=== PATIENT | female | born 1980 | race Caucasian/White ===

== ENCOUNTER 2021-11-27 09:04 | Outpatient (CLI) | payer BC, SELFPAY ==
--- NOTE | 2021-11-27 09:15 | CRLHL7_ITS ---
For Patients: As a result of the Century Cures Act, medical imaging exams and procedure reports are released immediately into your electronic medical record. You may view this report before your referring provider. If you have questions, please contact your health care provider. INDICATION: Breakthrough bleeding on control TECHNIQUE: Ultrasound pelvis transabdominal and transvaginal for better assessment or to better visualize the endometrium. Real time sonographic images with Spectral and color Doppler imaging of the ovaries were obtained. COMPARISON: None FINDINGS: Uterus: 7.8 centimeter x 3.6 centimeter x 4.1 centimeter. Normal echotexture of the myometrium. No masses. Endometrium: Transvaginal imaging was performed to better evaluate the endometrium. 8 millimeters in thickness. No sign of endometrial mass or fluid. Right ovary: 3.3 centimeter x 2.0 centimeter x 2.3 centimeter. No ovarian or adnexal masses. 0.8 centimeter dominant follicle. Normal arterial and venous blood flow. Left ovary: 2.9 centimeter x 1.7 centimeter x 2.2 centimeter no ovarian or adnexal masses. Normal arterial and venous blood flow. Cul-de-sac: No significant free fluid. IMPRESSION: Unremarkable pelvic ultrasound. Dictated by Frankie Zepeda MD @ 11/27/2021 8:19:25 PM (Electronically Signed)
== END 2021-11-27 09:05 | disposition home or self-care (01) ==
LOC: US 09:10
PROVIDERS: PCP Physician Assistant Medical; Visit Provider Physician Assistant Medical
DX: N92.6 Irregular menstruation, unspecified (principal)
CPT/HCPCS: 76830; 76856

== ENCOUNTER 2022-01-15 15:04 | Outpatient (CLI) | payer BC, SELFPAY ==
--- NOTE | 2022-01-15 15:20 | CRLHL7_ITS ---
For Patients: As a result of the Century Cures Act, medical imaging exams and procedure reports are released immediately into your electronic medical record. You may view this report before your referring provider. If you have questions, please contact your health care provider. BILATERAL SCREENING MAMMOGRAM WITH COMPUTER-AIDED DETECTION AND TOMOSYNTHESIS TECHNIQUE: CC and MLO views were obtained. These mammographic images have been obtained using full-field digital technique. These mammographic images were interpreted with the benefit of computer-aided detection. Breast Tomosynthesis was used in this interpretation. COMPARISON FILM: Baseline. FINDINGS: There are scattered areas of fibroglandular density IMPRESSION: There is no radiographic evidence for malignancy. ASSESSMENT: BI-RADS Category 1: Negative RECOMMENDATION: Routine screening mammogram in 1 year. A lay language report of this examination will be provided to the patient. Frankie Coker M.D. Diagnostic Radiologist [email or web address] REZA/Dictated by: Frankie Coker MD @ 01/18/2022 1:27:00 PM (Electronically Signed)
== END 2022-01-15 15:05 | disposition home or self-care (01) ==
LOC: MAMMO 15:06
PROVIDERS: PCP Physician Assistant Medical; Visit Provider Physician Assistant Medical
DX: Z12.31 Encounter for screening mammogram for malignant neoplasm of breast (principal)
CPT/HCPCS: 77063; 77067

== ENCOUNTER 2022-11-12 08:53 | Outpatient (CLI) | payer BC, SELFPAY ==
--- NOTE | 2022-11-12 09:15 | CRLHL7_ITS ---
For Patients: As a result of the Century Cures Act, medical imaging exams and procedure reports are released immediately into your electronic medical record. You may view this report before your referring provider. If you have questions, please contact your health care provider. HISTORY: Right ankle pain. TECHNIQUE: Noncontrast MRI of the right ankle. COMPARISON: Radiographs 10/18/2022. FINDINGS: Tendons: The posteromedial flexor tendons are intact. Anterior extensor tendons are intact. Mild distal Achilles tendinosis. There is spurring at the Achilles attachment to posterior calcaneus. No Achilles tendon tear. Trace fluid within the retrocalcaneal bursa. The peroneus brevis tendon appears relatively flat at the distal fibular level though not frankly split. The peroneus longus tendon is intact. - Ligaments: Chronic thickening of the anterior talofibular ligament compatible with ligament scarring and sequelae of remote ligament sprain. Calcaneofibular ligament intact. Posterior talofibular ligament intact. Deltoid ligament intact. The anterior and posterior syndesmotic ligaments are intact. The sinus tarsi fat is maintained. Calcaneonavicular spring ligament intact. Lisfranc ligament intact. - Joint spaces: No ankle joint effusion, focal cartilage defect or joint body. Subtalar, talonavicular and calcaneocuboid articulations are maintained. Joint spaces within the midfoot and at the midfoot-forefoot junction are maintained. - Bones and soft tissues: There is no acute fracture or avascular necrosis. Proximal plantar fascia is intact. No soft tissue mass. The area of sclerosis involving the distal tibial metaphysis laterally likely relates to a remote healed nonossifying fibroma given its radiographic appearance. IMPRESSION: 1. Sequelae of remote ATFL sprain with ligament scarring. No acute ligamentous abnormality. 2. Mild Achilles tendinosis with spurring at its posterior calcaneal attachment site. 3. Relatively flat but not frankly split appearance of the peroneus brevis tendon. 4. Joint spaces maintained. 5. 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 Dictated by Sanjay Dwyer MD @ 11/15/2022 8:02:33 AM (Electronically Signed)
== END 2022-11-12 08:54 | disposition home or self-care (01) ==
LOC: MRI 08:55
PROVIDERS: PCP Physician Assistant Medical; Visit Provider Family Medicine
DX: M25.571 Pain in right ankle and joints of right foot (principal); M76.61 Achilles tendinitis, right leg
CPT/HCPCS: 73721

== ENCOUNTER 2023-06-22 07:45 | Outpatient (CLI) | payer BC, SELFPAY | END 2023-06-22 07:46 | disposition home or self-care (01) | LOC: FRMREF 07:46 | PROVIDERS: PCP Physician Assistant Medical; Visit Provider Physician Assistant Medical | DX: R21 Rash and other nonspecific skin eruption (principal); R03.0 Elevated blood-pressure reading, without diagnosis of hypertension | CPT/HCPCS: 86039 ==

== ENCOUNTER 2023-08-23 08:47 | Outpatient (CLI) | payer BC, SELFPAY | END 2023-08-23 08:48 | disposition home or self-care (01) | LOC: NFLDREF 08-24 07:26 | PROVIDERS: PCP Physician Assistant Medical; Referring Provider Physician Assistant Medical; Visit Provider Physician Assistant Medical | DX: I10 Essential (primary) hypertension (principal); R53.83 Other fatigue; Z13.1 Encounter for screening for diabetes mellitus; Z13.6 Encounter for screening for cardiovascular disorders; Z13.9 Encounter for screening, unspecified | CPT/HCPCS: 80053; 80061; 82306; 82607; 82728; 84443 ==